=== PATIENT | male | born 1960 | race Two or more races ===

== ENCOUNTER 2020-07-09 12:03 | Inpatient (IN) | payer OTHER ==
[~2020-07-09] VITALS: Ht 170.2 cm; Wt 101.9 kg
[2020-07-09] MEDS ORDERED: methylPREDNISolone SOD SUCC 125 MG/2 ML VL IM ONE (14:30)
[2020-07-09 16:09] LABS: Basophils # (auto) 0 10 ^3/uL (0-0.2); Basophils % (auto) 0.3 % (0.0-2.0); Eosinophils # (auto) 0 10 ^3/uL (0-0.8); Eosinophils % (auto) 0.2 % (0.0-7.0); Hematocrit 45.3 % (41.0-53.0); Hemoglobin 16.2 g/dL (13.5-17.5); Lymphocytes # (auto) 0.9 10 ^3/uL (0.4-5.4); Lymphocytes % (auto) 18.6 % (10.0-50.0); Mean Corpuscular Hemoglobin 32.4 pg (28.0-32.0); Mean Corpuscular Hgb Conc. 35.7 g/dL (32.0-36.0); Mean Corpuscular Volume 90.8 fL (80.0-100.0); Monocytes # (auto) 0.4 10 ^3/uL (0-1.3); Monocytes % (auto) 9.3 % (0.0-12.0); Neutrophils # (auto) 3.3 10 ^3/uL (1.6-8.6); Neutrophils % (auto) 71.6 % (37.0-80.0); Nucleated Red Blood Cells % 0.1 %; Platelet Count (auto) 114 10^3/uL (140-450); Red Blood Cells 4.99 10^6/uL (4.5-5.90); Red Cell Distribution Width 12.5 % (11.8-14.3); White Blood Cell 4.6 10^3/uL (4.4-10.8)
[2020-07-09 16:24] LABS: Albumin 3.3 g/dL (3.4-5.0); Calcium 8.1 mg/dL (8.5-10.1); Potassium 4.2 mmol/L (3.5-5.1)
[2020-07-09 16:32] LABS: BUN/Creatinine Ratio 7.1; Bilirubin, Total 0.6 mg/dL (0.2-1.0); CRP High Sensitivity 8.02 mg/dL (< 0.3); Total Protein 7.8 g/dL (6.4-8.2)
[2020-07-09 20:01] LABS: Lactic Acid w/Reflex 2.1 mmol/L (0.4-2.0)
[2020-07-09] MEDS ORDERED: ONDANSETRON HCL 4 MG/2 ML VIAL IV PRN (23:00)
[2020-07-09] MEDS ORDERED: HYDROcodone-ACET 5/325MG TAB PO PRN (23:00)
[2020-07-09] MEDS ORDERED: MORPHINE SULF INJ 2 MG/ML SYRINGE 1ML IV PRN (23:00)
[2020-07-09] MEDS ORDERED: DOCUSATE SOD 100 MG CAP PO PRN (23:00)
[2020-07-09] MEDS ORDERED: DEXTROSE (50%) 50ML SYRG IV PRN (23:00)
[2020-07-09] MEDS ORDERED: ACETAMINOPHEN 500 MG TAB PO PRN (23:00)
[2020-07-09] MEDS ORDERED: ALBUTEROL SULF HFA 90MCG INH 200DOSE IN PRN (23:00)
[2020-07-09] MEDS ORDERED: NITROGLYCERIN 0.4 MG SL TAB SL PRN (23:00)
[2020-07-10] MEDS: SODIUM CHLOR 0.9% PF (SALINE LOCK) 10ML VIAL/SYR IV SCH ×3 (00:35→21:03)
[2020-07-10] MEDS: DOXYCYCLINE 100MG/250ML 250 ML IV SCH ×2 (00:36→08:27)
[2020-07-10] MEDS: ACCU-CHEK COMFORT CURVE STRIP VI SCH ×4 (07:32→21:07)
[2020-07-10] MEDS: InsuLIN REG 1unit/0.01ml Soln (100units/ml) SC SCH ×4 (07:35→21:06)
[2020-07-10 07:40] LABS: Basophils # (auto) 0 10 ^3/uL (0-0.2); Basophils % (auto) 0.3 % (0.0-2.0); Eosinophils # (auto) 0 10 ^3/uL (0-0.8); Hematocrit 43.3 % (41.0-53.0); Hemoglobin 15.4 g/dL (13.5-17.5); Lymphocytes # (auto) 0.5 10 ^3/uL (0.4-5.4); Lymphocytes % (auto) 18.7 % (10.0-50.0); Mean Corpuscular Hemoglobin 32.3 pg (28.0-32.0); Mean Corpuscular Hgb Conc. 35.6 g/dL (32.0-36.0); Mean Corpuscular Volume 90.6 fL (80.0-100.0); Monocytes # (auto) 0.1 10 ^3/uL (0-1.3); Monocytes % (auto) 4.9 % (0.0-12.0); Neutrophils # (auto) 2.1 10 ^3/uL (1.6-8.6); Neutrophils % (auto) 76.1 % (37.0-80.0); Nucleated Red Blood Cells % 0.2 %; Platelet Count (auto) 113 10^3/uL (140-450); Red Blood Cells 4.79 10^6/uL (4.5-5.90); Red Cell Distribution Width 12.2 % (11.8-14.3); White Blood Cell 2.8 10^3/uL (4.4-10.8)
[2020-07-10 07:53] LABS: Albumin 2.9 g/dL (3.4-5.0); Calcium 8.2 mg/dL (8.5-10.1); Magnesium 2.3 mg/dL (1.6-2.6); Potassium 4.6 mmol/L (3.5-5.1)
[2020-07-10 07:56] LABS: BUN/Creatinine Ratio 14.3; Bilirubin, Total 0.7 mg/dL (0.2-1.0)
[2020-07-10] MEDS: FAMOTIDINE (10MG/ML) 2ML VL IV SCH ×2 (08:17→21:02)
[2020-07-10] MEDS: MULTIPLE VITAMIN TAB PO SCH (08:17)
[2020-07-10] MEDS: ZINC SULFATE 220mg CAP or TAB PO SCH (08:17)
[2020-07-10] MEDS: DexAMETHasone SOD PHOS 10MG/1ML VIAL INJ IV SCH (08:17)
[2020-07-10] MEDS: ASCORBIC ACID 500 MG TAB PO SCH ×2 (08:18→21:02)
[2020-07-10] MEDS: CHOLECALCIFEROL (VITD3) 2,000 UNIT CAP PO SCH (08:18)
[2020-07-10] MEDS ORDERED: ENOXAPARIN SOD 40 MG/0.4 ML SYRINGE SC SCH (10:00)
[2020-07-10] MEDS: BUDESONIDE (INHALATION) 180 MCG IH IN SCH ×3 (10:00→22:00)
--- NOTE | 2020-07-10 15:40 | NUR ---
Telemetry admit from [facility] admitted to Telemetry unit after SBAR received. Patient oriented to ZULEYKA MORALES, TAQUERIA primary RN, unit, room, bed, and unit policies regarding patient care and visiting hours. Patient now on continuous telemetry monitoring, tele box # 19 and telemetry reading on arrival to unit is sinus rhythm. Patient placed on bedside oxygen, weighed by bedscale and encouraged to call if they need something. All questions and concerns addressed, patient verbalized understanding.
--- NOTE | 2020-07-10 16:15 | NUR ---
[facility]SA SWAB COLLECTED AND SENT TO LAB PER PROTOCOL
[2020-07-10 16:30] VITALS: BP 128/79
[2020-07-10 16:45] VITALS: BP 128/79
[2020-07-10] MEDS ORDERED: FUROSEMIDE 20 MG/2 ML VIAL IV ONE (19:15)
[2020-07-10] MEDS ORDERED: CEFEPIME 1 GM in SODIUM CHL 0.9% 50 ML IV ONE (19:15)
[2020-07-10] MEDS ORDERED: REMDESIVIR PER PHARMACY 0 ML IV SCH (19:15)
[2020-07-10] MEDS ORDERED: DEXTROSE (50%) 50ML SYRG IV PRN (19:15)
--- NOTE | 2020-07-10 19:30 | NUR ---
Opening Shift Note Assumed care of patient, awake and alert. No S/S of distress/SOB or pain. Instructed on POC and to callfor assist PRN, will continue to monitor for changes Q1hr and PRN.
[2020-07-10] MEDS ORDERED: METF-370 PO (19:32)
--- NOTE | 2020-07-10 19:34 | NUR ---
ENDORSED CARE TO NOC SHIFT RN
[2020-07-10] MEDS: ENOXAPARIN SOD 40 MG/0.4 ML SYRINGE SC SCH (21:03)
[2020-07-10] MEDS: ATORVASTATIN 20 MG TAB PO SCH (21:03)
--- NOTE | 2020-07-10 21:20 | NUR ---
sched maxipime not in the pyxis nor pt's PAT. spoke with nursing cement or concrete finishing supervisor stated will global find
--- NOTE | 2020-07-10 22:30 | NUR ---
ff -up maxipime with nursing station installation supervisor Uri stated not in global find. advised to non admin and ffup in the pharmacy in the morning
[2020-07-10 23:28] VITALS: BP 131/86
--- NOTE | 2020-07-10 23:30 | NUR ---
spoke with RT regarding pt's inhaler stated will get medication from the pharmacy in the morning. pt's inhalers at bedside not on pt's name
[2020-07-11] VITALS (8 sets, daily range): BP systolic 115–148; BP diastolic 63–96
[2020-07-11] MEDS: CEFEPIME 1 GM in SODIUM CHL 0.9% 50 ML IV SCH ×4 (06:00→21:39)
[2020-07-11] MEDS: FUROSEMIDE 20 MG/2 ML VIAL IV SCH ×2 (06:23→17:08)
[2020-07-11] MEDS: SODIUM CHLOR 0.9% PF (SALINE LOCK) 10ML VIAL/SYR IV SCH ×3 (06:24→21:40)
[2020-07-11] MEDS: ACCU-CHEK COMFORT CURVE STRIP VI SCH ×4 (06:24→21:40)
[2020-07-11] MEDS: InsuLIN REG 1unit/0.01ml Soln (100units/ml) SC SCH ×4 (06:38→21:41)
--- NOTE | 2020-07-11 07:04 | NUR ---
awaiting for maxipime from pharmacy, called earlier stated they gonna send up for 0600 dose
[2020-07-11 07:46] LABS: Potassium 4.2 mmol/L (3.5-5.1)
[2020-07-11 07:57] LABS: Albumin 2.8 g/dL (3.4-5.0); BUN/Creatinine Ratio 21.6; Bilirubin, Total 0.4 mg/dL (0.2-1.0); Total Protein 6.5 g/dL (6.4-8.2)
[2020-07-11 08:08] LABS: Calcium 7.9 mg/dL (8.5-10.1)
[2020-07-11] MEDS: DexAMETHasone SOD PHOS 10MG/1ML VIAL INJ IV SCH (09:12)
[2020-07-11] MEDS: ASCORBIC ACID 500 MG TAB PO SCH ×2 (09:12→21:39)
[2020-07-11] MEDS: ASPirin 81 mg TAB PO SCH (09:12)
[2020-07-11] MEDS: FAMOTIDINE (10MG/ML) 2ML VL IV SCH ×2 (09:12→21:39)
[2020-07-11] MEDS: ENOXAPARIN SOD 40 MG/0.4 ML SYRINGE SC SCH ×2 (09:12→21:39)
[2020-07-11] MEDS: MULTIPLE VITAMIN TAB PO SCH (09:13)
[2020-07-11] MEDS: ZINC SULFATE 220mg CAP or TAB PO SCH (09:13)
[2020-07-11] MEDS: CHOLECALCIFEROL (VITD3) 2,000 UNIT CAP PO SCH (09:13)
--- NOTE | 2020-07-11 11:00 | NUR ---
IS at bedside, teaching explained, patient demonstrated and verbalized understanding.
[2020-07-11] MEDS ORDERED: REMDESIVIR 200 MG in NS 210ml LOADING DOSE ADULT IV ONE (15:00)
--- NOTE | 2020-07-11 15:00 | NUR ---
Taper down oxygen to 1 L , o2 sat 92-96 %.
--- NOTE | 2020-07-11 15:40 | NUR ---
Remdesivir started, VS charted in emar.
--- NOTE | 2020-07-11 17:02 | NUR ---
Remdesivir finished, VS charted in emar, no any reactions noted.
--- NOTE | 2020-07-11 19:30 | NUR ---
Opening Shift Note Assumed care of patient, awake and alert. No S/S of distress/SOB or pain. Instructed on POC and to call for assist PRN, will continue to monitor for changes Q1hr and PRN.
[2020-07-11] MEDS: ATORVASTATIN 20 MG TAB PO SCH (21:39)
[2020-07-11] MEDS: BUDESONIDE (INHALATION) 180 MCG IH IN SCH (22:00)
[2020-07-12] VITALS: BP 141/80
[2020-07-12] MEDS: SODIUM CHLOR 0.9% PF (SALINE LOCK) 10ML VIAL/SYR IV SCH ×2 (05:05→14:33)
[2020-07-12] MEDS: FUROSEMIDE 20 MG/2 ML VIAL IV SCH ×2 (06:09→17:47)
[2020-07-12] MEDS: CEFEPIME 1 GM in SODIUM CHL 0.9% 50 ML IV SCH ×2 (06:09→15:52)
[2020-07-12] MEDS: ACCU-CHEK COMFORT CURVE STRIP VI SCH ×3 (06:10→17:41)
[2020-07-12] MEDS: InsuLIN REG 1unit/0.01ml Soln (100units/ml) SC SCH ×3 (06:11→17:45)
[2020-07-12 06:53] LABS: Calcium 8.2 mg/dL (8.5-10.1)
--- NOTE | 2020-07-12 07:06 | NUR ---
CLOSING NOTE endorsed care to Day RN, No sign of pain/distress at this time
[2020-07-12 07:13] LABS: Bilirubin, Total 0.5 mg/dL (0.2-1.0); Total Protein 6.7 g/dL (6.4-8.2)
[2020-07-12 07:52] VITALS: BP_SYST 106; BP_SYST 115; BP_DIAS 65; BP_DIAS 68
[2020-07-12] MEDS: FAMOTIDINE (10MG/ML) 2ML VL IV SCH (10:29)
[2020-07-12] MEDS: DexAMETHasone SOD PHOS 10MG/1ML VIAL INJ IV SCH (10:30)
[2020-07-12] MEDS: MULTIPLE VITAMIN TAB PO SCH (10:30)
[2020-07-12] MEDS: ENOXAPARIN SOD 40 MG/0.4 ML SYRINGE SC SCH (10:30)
[2020-07-12] MEDS: ASPirin 81 mg TAB PO SCH (10:30)
[2020-07-12] MEDS: CHOLECALCIFEROL (VITD3) 2,000 UNIT CAP PO SCH (10:30)
[2020-07-12] MEDS: ZINC SULFATE 220mg CAP or TAB PO SCH (10:30)
[2020-07-12] MEDS: ASCORBIC ACID 500 MG TAB PO SCH (10:30)
[2020-07-12] MEDS: BUDESONIDE (INHALATION) 180 MCG IH IN SCH (11:48)
[2020-07-12 14:30] VITALS: BP 115/64
--- NOTE | 2020-07-12 14:30 | NUR ---
Remdesivir started, VS charted in emar.
[2020-07-12 14:45] VITALS: BP 112/67
[2020-07-12] MEDS ORDERED: REMDESIVIR 100 MG in SODIUM CHL 0.9% 250 ML IV SCH (15:00)
--- NOTE | 2020-07-12 15:30 | NUR ---
Remdesivir finished, VS charted in emar, no any reactions noted.
[2020-07-12] MEDS ORDERED: ATOR20TA50 PO ×2 (15:40→16:06)
[2020-07-12] MEDS ORDERED: LEVO750T64 PO ×2 (15:40→16:06)
[2020-07-12] MEDS ORDERED: ASCO500T11 PO ×2 (15:40→16:06)
[2020-07-12] MEDS ORDERED: METF-372 PO ×2 (15:40→16:06)
[2020-07-12] MEDS ORDERED: DOCU100C8 PO ×2 (15:40→16:06)
[2020-07-12] MEDS ORDERED: FAMO-12 PO ×2 (15:40→16:06)
[2020-07-12] MEDS ORDERED: ASPI81CH43 PO ×2 (15:40→16:06)
[2020-07-12] MEDS ORDERED: DEX4T PO ×2 (15:40→16:06)
[2020-07-12] MEDS ORDERED: SITA100T7 PO ×2 (15:40→16:06)
[2020-07-12] MEDS ORDERED: ALBU108A5 IN ×2 (15:40→16:06)
[2020-07-12] MEDS ORDERED: CHOL1CAP47 PO ×2 (15:40→16:06)
[2020-07-12] MEDS ORDERED: MULTTAB99 PO ×2 (15:40→16:06)
[2020-07-12 16:00] VITALS: BP 135/80
--- NOTE | 2020-07-12 16:31 | NUR ---
Per Dr. Ruiz patient does not need ABG and home o2, order cancelled.
[2020-07-12 16:43] LABS: Basophils # (auto) 0 10 ^3/uL (0-0.2); Basophils % (auto) 0.3 % (0.0-2.0); Eosinophils # (auto) 0 10 ^3/uL (0-0.8); Eosinophils % (auto) 0.1 % (0.0-7.0); Hematocrit 43.2 % (41.0-53.0); Hemoglobin 15.6 g/dL (13.5-17.5); Lymphocytes # (auto) 0.6 10 ^3/uL (0.4-5.4); Lymphocytes % (auto) 6.8 % (10.0-50.0); Mean Corpuscular Hemoglobin 32.5 pg (28.0-32.0); Mean Corpuscular Volume 90.4 fL (80.0-100.0); Monocytes # (auto) 0.4 10 ^3/uL (0-1.3); Monocytes % (auto) 4.3 % (0.0-12.0); Neutrophils # (auto) 8.3 10 ^3/uL (1.6-8.6); Neutrophils % (auto) 88.5 % (37.0-80.0); Nucleated Red Blood Cells % 0.1 %; Platelet Count (auto) 158 10^3/uL (140-450); Red Blood Cells 4.78 10^6/uL (4.5-5.90); Red Cell Distribution Width 12.4 % (11.8-14.3); White Blood Cell 9.4 10^3/uL (4.4-10.8)
--- NOTE | 2020-07-12 17:16 | NUR ---
Oxygen room air 90-95 %
--- NOTE | 2020-07-12 17:30 | NUR ---
Spoke to Jewel CASTELLANO regarding patient BS 355, given 15 U , if patient needs additional orders, per Jewel CASTELLANO patient is cleared to DC home.
[2020-07-12 17:37] VITALS: BP 136/78
--- NOTE | 2020-07-12 19:39 | NUR ---
PATIENT DISCHARGED PATIENT OFF FLOOR VIA WHEELCHAIR BY YESENIA NURSE PAINT BRUSH MAKER. ALL BELONGINGS WITH PATIENT. ALL DISCHARGE PAPERWORK AND INSTRUCTIONS SIGNED BY PATIENT AND DAY SHIFT NURSE AMY MENG. TELE BOX AND IV REMOVED BY AMY MENG. PATIENT INSTRUCTED TO GO TO NEAREST ER OR CALL 911 IF CONDITION DOES NOT IMPROVE OR WORSENS. PATIENT LEFT FLOOR COMFORTABLE, NO S/SX OF DISTRESS OR SOB.
== END 2020-07-12 19:39 | disposition home or self-care (01) | DRG 177 ==
LOC: ER 12:03 → TELE 12:04 → TELE-EAST 07-10 15:38
PROVIDERS: ADMIT Nurse Practitioner Family; ATTEND Nurse Practitioner Family
PROC: XW033E5 Introduction of Remdesivir Anti-infective into Peripheral Vein, Percutaneous Approach, New Technology Group 5 (ICD-10-PCS; principal; 2020-07-11)
DX: U07.1 COVID-19 (principal); J12.89 Other viral pneumonia; J96.01 Acute respiratory failure with hypoxia; E44.0 Moderate protein-calorie malnutrition; E87.1 Hypo-osmolality and hyponatremia; E66.01 Morbid (severe) obesity due to excess calories; E78.5 Hyperlipidemia, unspecified; E11.9 Type 2 diabetes mellitus without complications; I10 Essential (primary) hypertension; Z68.35 Body mass index [BMI] 35.0-35.9, adult; Z79.899 Other long term (current) drug therapy
CPT/HCPCS: 36415; 71045; 80053; 82728; 82962; 83605; 83735; 84443; 85025; 85379; 86141; 87040; 87081; 87426; 96365; 96372; 96375; G0378; J1100; J1815; J3490